=== PATIENT | female | born 1985 | race Two or more races ===

== ENCOUNTER 2025-07-02 11:41 | Emergency (ER) | payer MEDICAID, SELFPAY ==
--- NOTE | 2025-07-02 | XR_ITS ---
Examination: MRI lumbar spine without contrast Date and time of exam: July 02, 2025, 1424 hours INDICATIONS: Patient woke up with severe low back pain today numbness in the legs Technique: Multiple MRI axial and sagittal sections lumbar spine. Sagittal T2-weighted images, TR 3500, TE 118 T1 weighted transverse sections, TR 688 T8.5, T2-weighted sagittal sections T1 weighted sagittal sections TR 621, TE 30 T2 axial sections, TR 4, 190, TE 84. Findings: Straightening of normal lumbar lordosis. Moderate disc narrowing L4-L5 Disc desiccation lower 4 lumbar levels L5-S1 5 mm central lumbar disc bulge contiguous with the right and left S1 nerve roots L4-L5 large, 15 mm right paracentral disc bulge displacing the right L5 nerve root L3-L4 3 mm central lumbar disc bulge L2-L3 6 mm central lumbar disc bulge IMPRESSION: Multiple lumbar disc bulges including very large, 15 mm, L4-L5 right paracentral disc bulge displacing the right L5 nerve root
--- NOTE | 2025-07-02 12:10 | PD.EDRME ---
Rapid Medical Screening Exam E Arrival date/time: 07/02/25 11:41 40-year-old female with a history of back surgery presents to the emergency room with a chief complaint of 10 out of 10 lumbar back pain x 1 day. Patient states the pain woke her up this morning. Patient states she voided herself without meaning to. I have greeted and performed a focused initial assessment of this patient. A comprehensive ED assessment and evaluation of the patient, analysis of all test results, and completion of the medical decision making process will be conducted by additional ED providers. Chief Complaint: Back Pain/Injury Time Seen by Provider: 07/02/25 12:06 Vital signs reviewed by provider: Yes Exam: 10 out of 10 lumbar back pain with palpation GCS 15, clear bilateral lung sounds Clinical Impression: Cauda equina syndrome/lumbar strain/
[2025-07-02 12:12] VITALS: BP 144/78; PULSE 89; RESP 18; TEMP 36.9; O2SAT 99; BMI 29.2
[2025-07-02] MEDS: KETOROLAC INJ 60 MG/2 ML VIAL 30 MG IM (12:14)
[2025-07-02 13:07] LABS: Basophils # (Auto) 0.1 Thou/mm3 (0.0-0.2); Basophils % (Auto) 1 % (0-2.5); Eosinophils # (Auto) 0.3 Thou/mm3 (0.0-0.5); Eosinophils % (Auto) 5 % (0-10); Hematocrit 40.0 % (36.0-46.0); Hemoglobin 13.2 g/dL (12.0-16.0); Immature Granulocytes Auto 0.01 Thou/mm3 (0.00-0.00); Lymphocytes # (Auto) 1.8 Thou/mm3 (1.0-4.8); Lymphocytes % (Auto) 30 % (10-50); Mean Corpuscular HGB Conc 33.0 g/dl (31.0-37.0); Mean Corpuscular Hemoglobin 29.5 pg (25.0-35.0); Mean Corpuscular Volume 89 fL (80-100); Monocytes # (Auto) 0.5 Thou/mm3 (0.0-0.8); Monocytes % (Auto) 9 % (0-12); Neutrophils # (Auto) 3.3 Thou/mm3 (1.8-7.7); Neutrophils % (Auto) 55 % (37-80); Nucleated Red Blood Cell # 0.00 Thou/mm3 (0.00-0.00); Nucleated Red Blood Cell % 0 /100 WBC (0); Platelet Count 353 Thou/mm3 (140-440); RDW Standard Deviation 44.9 fL (36.4-46.3); Red Blood Count 4.48 Miln/mm3 (4.00-5.20); White Blood Count 6.0 Thou/mm3 (3.6-11.0)
[2025-07-02 13:23] LABS: INR 1.0 (0.9-1.3); Partial Thromboplastin Time 29.8 Seconds (22.0-36.0); Prothrombin Time 10.3 Seconds (9.0-12.2)
[2025-07-02 13:31] LABS: Alanine Aminotransferase 13 U/L (10-49); Albumin, Serum 4.6 gm/dL (3.5-5.0); Albumin/Globulin Ratio 1.8 (1.2-2.2); Alkaline Phosphatase 76 U/L (46-116); Anion Gap 7 (7-16); Aspartate Amino Transferase 21 U/L (0-34); BUN/Creatinine Ratio 14 Ratio (12-20); Bilirubin,Total 0.9 mg/dL (0.3-1.2); Blood Urea Nitrogen 10 mg/dL (9-23); Calcium 8.5 mg/dL (8.3-10.6); Calcium (Corrected) 8.5 mg/dL (8.5-10.1); Carbon Dioxide 25.9 mMol/L (20.0-31.0); Chloride 108 mMol/L (98-107); Creatinine (Component) 0.7 mg/dL (0.6-1.3); Estimated Creatinine Clearance 101.4 mL/min (>60); Globulin 2.6 gm/dL (2.3-3.5); Glucose 109 mg/dL (74-106); HCG,Qualitative Serum Negative; Osmolality,Calculated 281 (275-295); Potassium 3.9 mMol/L (3.4-5.1); Sodium 141 mMol/L (136-145); Total Protein 7.2 gm/dL (5.7-8.2); eGFR > 60 See Note
[2025-07-02] MEDS: HYDROcodone/APAP 5/325 TABLET 1 TAB PO (13:52)
[2025-07-02] MEDS: LORazepam 2 MG/ML VIAL 1 MG IM (13:53)
--- NOTE | 2025-07-02 14:13 | PD.EDBACK ---
ED Back Injury Pain RME/HPI General Chief Complaint: Back Pain/Injury Stated Complaint: BACK PAIN Time Seen by Provider: 07/02/25 12:06 Arrival date/time: 40-year-old female patient came in for evaluation regarding low back pain. Patient been having on and off low back pain, but this morning patient woke up with worsening low back pain, with 1 episode of incontinence due to pain. Patient also complaining of numbness to the right lower extremity. Patient denies any upper or lower extremity weakness. Able to bend and extend the hip and knee without any limitation. Patient had back surgery back in [place] a year ago for laminectomy and discectomy. Patient is denying any fever. Denies any saddle anesthesia. Denies any bowel incontinence. No medication was taken prior to ER visit. Patient is able to ambulate with help according to the RME / HPI RME / HPI Narrative: 07/02/25 11:41 40-year-old female with a history of back surgery presents to the emergency room with a chief complaint of 10 out of 10 lumbar back pain x 1 day. Patient states the pain woke her up this morning. Patient states she voided herself without meaning to. I have greeted and performed a focused initial assessment of this patient. A comprehensive ED assessment and evaluation of the patient, analysis of all test results, and completion of the medical decision making process will be conducted by additional ED providers. Exam: 10 out of 10 lumbar back pain with palpation GCS 15, clear bilateral lung sounds Impression: Cauda equina syndrome/lumbar strain/ Related Data Previous Rx's ?Medication ?Instructions ?Recorded cyclobenzaprine 10 mg tablet 10 mg PO TID PRN muscle spasm #30 07/02/25 tabs dexamethasone 6 mg tablet 6 mg PO QDAY #10 tabs 07/02/25 famotidine 40 mg tablet (Pepcid) 40 mg PO BID #20 tabs 07/02/25 ketorolac 10 mg tablet 10 mg PO Q8H PRN pain 7 days #20 07/02/25 tabs metronidazole 500 mg tablet 500 mg PO BID 7 days #14 tabs 07/02/25 Allergies Allergy/AdvReac Type Severity Reaction Status Date / Time No Known Allergies Allergy Verified 07/02/25 11:44 Review of Systems Review of Systems Narrative Review of Systems: Review of system reviewed and within normal limits except mentioned in HPI ED Exam Narrative Physical exam: VITAL SIGNS: Reviewed. GENERAL APPEARANCE: Alert and interactive, follows commands, no acute distress, HEAD AND FACE: Non-traumatic. ENT: PERRL, pink conjunctivitis, eyelid no trauma, Mucous membrane moist. NECK: Supple, nontender, no nuchal rigidity. CHEST: No tenderness, no crepitus, no paradoxical movement, no retractions. LUNGS: Clear, well ventilated, symmetric, no rales, no wheezing, no ronchi, no stridor, good breath sounds bilaterally. HEART: Regular rate, regular rhythm, no murmur, no gallops. ABDOMEN: Soft, positive bowel sounds, nondistended, no guarding, nontender, no rebound, no masses, RECTAL: Deferred. GENITAL: Deferred. NEUROLOGICAL: Gross motor function intact sensory function intact, Appropriate for age. No saddle anesthesia noted MUSCULOSKELETAL: low back nontender, full range of motion. EXTREMITIES: Nontender, full range of motion. SKIN: Color pink, dry, no rash, no lacerations, no abrasions, no contusions. LYMPHATICS: Deferred. Course Quality Measures none Orders Category Date Time Status In and Out Catheter X1 Care 07/02/25 14:02 Completed Insert IV NOW Care 07/02/25 15:04 Active MRI Screening NOW Care 07/02/25 12:10 Active MR lumbar spine wo con Stat Exams 07/02/25 Completed Bacterial Vaginal Panel Stat Lab 07/02/25 15:00 Completed CBC Stat Lab 07/02/25 12:28 Completed CMP [Comprehensive Metabolic Panel] Stat Lab 07/02/25 12:28 Completed HCG,Qualitative Serum Stat Lab 07/02/25 12:28 Completed PT [Prothrombin Time with INR] Stat Lab 07/02/25 12:28 Completed PTT [Partial Thromboplastin Time] Stat Lab 07/02/25 12:28 Completed UA, C/S IF [Urinalysis, C/S if Indicated] Stat Lab 07/02/25 14:14 Completed Dexamethasone Inj [Decadron Inj] 15 mg Med 07/02/25 16:11 Discontinued Sodium Chloride 0.9% [Ns] 100 ml IV X1 HYDROcodone*/APAP 5/325 [[place] 5/325] Med 07/02/25 13:42 Discontinued 1 tab PO X1 ONE Ketorolac Inj [Toradol Inj] Med 07/02/25 12:08 Discontinued 30 mg IM X1 ONE LORazepam [Ativan Inj] Med 07/02/25 13:42 Discontinued 1 mg IM X1 ONE Vital Signs Vital signs: Vital Signs Temperature 98.5 F 07/02/25 12:12 Pulse Rate 89 07/02/25 12:12 Respiratory Rate 18 07/02/25 12:12 Blood Pressure 144/78 H 07/02/25 12:12 Pulse Oximetry (%) 99 07/02/25 12:12 Oxygen Delivery Method Room Air 07/02/25 12:12 Back Pain / Injury MDM Narrative MDM Narrative:: 40-year-old female patient came in for evaluation regarding back pain. Onset of symptoms earlier this morning, patient woke up with back pain, lumbar in location, severity 10 out of 10 described as sharp pain. Patient verbalized 1 episode of incontinence with urine. Also complaining of right lower leg numbness. Denies any bowel incontinence. Denies any fever. Denies any upper or lower extremity weakness. Patient had history of lumbar surgery. No fever noted. No dysuria noted Patient was on a diaper, entire emergency room stay, and there was no incontinence noted. Patient did not have any saddle anesthesia and no bowel incontinence. Patient is not showing any sign of cauda equina syndrome at this time. Patient MRI of the lumbar spine showed Multiple lumbar disc bulges including very large, 15 mm, L4-L5 right paracentral disc bulge displacing the right L5 nerve root Patient is laboratory workup all came back normal. Patient was given a copy of her MRI. Patient was advised to follow-up with PCP in the morning and for referral to spine surgeon for definitive management of her this problem. She is stable for discharge home there is no need to do emergency surgery at this time. She is not showing any cauda equina syndrome. Patient data External records reviewed:: None Clinical information provided by:: patient Social determinants that could affect healthcare access:: none Patient has the following chronic illnesses:: None How is presenting disease/condition affected by chronic disease/condition?: no chronic disease Evaluation data The following diagnostics were reviewed and interpreted by me:: lab results and radiology exam(s) Lab and/or radiology exams considered but not ordered:: None Interpretation Summary: See above Medications / Prescriptions Medications or Prescriptions considered but not ordered:: None Medication administrations:: Medication Administration History Discontinued Medications Hydrocodone Bitart/Acetaminophen (Hydrocodone/[place]ap 5/325 Tablet) 1 tab PO X1 ONE Stop: 07/02/25 13:43 Last Admin: 07/02/25 13:52 Dose: 1 tab Documented By: Dexamethasone Sodium Phosphate (15 mg/ Sodium Chloride) 101.5 mls @ 101.5 mls/hr IV X1 ONE Stop: 07/02/25 16:12 Last Admin: 07/02/25 16:16 Dose: 101.5 mls/hr Documented By: BY Ketorolac Tromethamine (Ketorolac Inj 60 Mg/2 Ml Vial) 30 mg IM X1 ONE Stop: 07/02/25 12:09 Last Admin: 07/02/25 12:14 Dose: 30 mg Documented By: Lorazepam (Lorazepam 2 Mg/Ml Vial) 1 mg IM X1 ONE Stop: 07/02/25 13:43 Last Admin: 07/02/25 13:53 Dose: 1 mg Documented By: [place] Toradol lorazepam and Decadron Consultations Consultation(s) initiated? (list below): No Diagnosis Differential diagnosis back pain/injury: lumbar radiculopathy, sciatica and strain of lumbar region Most likely diagnosis given after review of the tests above:: Lumbar disc problem, paresthesia leg Admission Indicated Admission indicated?: not indicated Admission Request Was there a request for admission?: No Disposition Plan Disposition Plan: Discharge Discharge Attestation Discharge Attestation: The patient and all family members were given an opportunity to ask questions and understood the discharge instructions. Discharge instructions specifically effects, indications for sooner follow up or return to the emergency department, and the expected course of current diagnosis. Patient condition: Stable Discharge Plan Plan Patient Disposition: HOME (Self Care) Discharge Disposition comment: Stable Prescriptions/Referrals Prescriptions/Med Rec: New dexamethasone 6 mg tablet 6 mg PO QDAY Qty: 10 0RF cyclobenzaprine 10 mg tablet 10 mg PO TID PRN (Reason: muscle spasm) Qty: 30 0RF famotidine [Pepcid] 40 mg tablet 40 mg PO BID Qty: 20 0RF ketorolac 10 mg tablet 10 mg PO Q8H PRN (Reason: pain) 7 Days Qty: 20 0RF metronidazole 500 mg tablet 500 mg PO BID 7 Days Qty: 14 0RF Problem List Clinical Impression: Sciatica, Lumbar disc disease, Bacterial vaginosis Patient/Caregiver Discharge Instructions Discharge Activity: activity as tolerated Education Materials: Back Safety Bed Additional Instructions: Thank you for the opportunity for serving you today. You are stable for discharged . You are advised to: Follow-up with your PCP in 1 to 2 days and asked for referral to spine surgeon Return to ED for worsening of symptoms Increase oral fluids Take medication as prescribed Bedrest for the next 3 to 4 days advance as tolerated Print Language: Slovenian Stand Alone Forms: Terese Award Info., Patient Portal Info Letter KIKE/YOKO Supervising Physician KIKE/YOKO Supervising Physician: MD Pancho
[2025-07-02 14:19] LABS: Collection Type, Urine Clean Catch
[2025-07-02 14:36] LABS: Bilirubin,Urine Negative (Negative); Blood,Urine Negative (Negative); Clarity,Urine Clear (Clear/Hazy); Color,Urine Lt-Yellow (Lt Yel-Yel); Culture Indicated,Urine Not Indicated; Glucose, Urine Negative (Negative); Ketones,Urine Negative (Negative); Leukocyte Esterase,Urine Negative (Negative); Nitrite,Urine Negative (Negative); PH,Urine 5.5 (5.0-7.0); Protein,Urine Negative (Neg - Trace); RBC,Urine < 1 /hpf (0-3); Specific Gravity,Urine 1.022 (1.001-1.035); Squamous Epithelial Cell,Urine 1 /hpf (0-5); Urobilinogen,Urine Negative mg/dL (0.0-1.0); WBC,Urine < 1 /hpf (0-5)
[2025-07-02 15:11] VITALS: BP 117/77; PULSE 75; RESP 16; O2SAT 98
[2025-07-02] MEDS: SODIUM CHLORIDE 0.9% IV (16:16)
[2025-07-02] MEDS: DEXAMETHASONE IV (16:16)
[2025-07-02 16:56] LABS: BVAG Candida Negative (Negative); Bacterial Vaginosis Markers Positive (Negative); Candida glabrata Negative (Negative); Candida krusei PCR Negative (Negative); Trichomonas Negative (Negative)
== END 2025-07-02 17:15 | disposition home or self-care (01) ==
PROVIDERS: Nurse Practitioner Family; Emergency Provider Emergency Medicine
DX: N76.0 Acute vaginitis (principal); B96.89 Other specified bacterial agents as the cause of diseases classified elsewhere; M51.16 Intervertebral disc disorders with radiculopathy, lumbar region
CPT/HCPCS: 36415; 51701; 72148; 80053; 81001; 81514; 84703; 85025; 85610; 85730; 96372; 99284; J1100; J1885; J2060; J7050; A9270